=== PATIENT | female | born 1935 ===

== ENCOUNTER 2017-09-21 05:46 | Day surgery (SDC) | payer OTHER ==
[~2017-09-21 05:46] MED LIST: LEVO-T25 MCG PO; METOPROLOL SUCC50 MG PO; PEPCID20 MG PO; ZYRTEC10 M3 PO
== END 2017-09-21 11:35 | disposition home or self-care (01) ==
LOC: CIR.AMB 05:46
DX: D23.22 Other benign neoplasm of skin of left ear and external auricular canal (principal)